=== PATIENT | female | born 1970 | race Caucasian/White ===

== ENCOUNTER 2016-10-15 01:28 | Observation (INO) | payer OTHER ==
[~2016-10-15] VITALS: Ht 165.1 cm; Wt 98.4 kg
[~2016-10-15 01:28] MED LIST: CIPRO250 MG PO
[2016-10-15 03:02] LABS: HEMOGLOBIN 14.7 gm/dl (12.3-15.3); RED BLOOD COUNT 4.69 M/UL (4.00-5.10); WHITE BLOOD COUNT 6.2 K/UL (4.5-11.0)
[2016-10-15 03:19] LABS: BUN/CREATININE RATIO 18 (0-10)
[2016-10-15] MEDS ORDERED: LOSARTAN POTASS25 MG PO (09:41)
[2016-10-15] MEDS ORDERED: LEVOTHYROXINE125 MCG PO (09:42)
[2016-10-15] MEDS ORDERED: GLIMEPIRIDE4 MG PO (09:43)
[2016-10-15] MEDS ORDERED: CRESTOR5 MG PO (09:43)
[2016-10-15] MEDS ORDERED: METFORMIN HCL1000 M1 PO (09:44)
[2016-10-15] MEDS ORDERED: ZOFRAN4 MG PO (09:45)
[2016-10-15] MEDS ORDERED: MACROBID 100 M100 MG PO (09:46)
[2016-10-16 06:24] LABS: HEMOGLOBIN 12.5 gm/dl (12.3-15.3); RED BLOOD COUNT 4.05 M/UL (4.00-5.10); WHITE BLOOD COUNT 4.1 K/UL (4.5-11.0)
[2016-10-16 06:34] LABS: BUN/CREATININE RATIO 20 (0-10)
[2016-10-16] MEDS ORDERED: DIFLUCAN200 MG PO (13:53)
[2016-10-16] MEDS ORDERED: PHENERGAN 12.12.5 M1 PO (13:54)
[2016-10-16] MEDS ORDERED: CIPROFLOXACIN500 M1 PO (13:55)
== END 2016-10-16 14:50 | disposition home or self-care (01) ==
LOC: ER1 01:28 → ZEROF 05:45 → M/S 05:45
PROVIDERS: Family Medicine; ADMIT Internal Medicine
DX: B37.49 Other urogenital candidiasis (principal); E83.52 Hypercalcemia; E03.9 Hypothyroidism, unspecified; E11.9 Type 2 diabetes mellitus without complications; I10 Essential (primary) hypertension; Z85.820 Personal history of malignant melanoma of skin; Z83.3 Family history of diabetes mellitus; Z82.5 Family history of asthma and other chronic lower respiratory diseases; Z88.0 Allergy status to penicillin; Z79.2 Long term (current) use of antibiotics; Z79.899 Other long term (current) drug therapy; Z98.51 Tubal ligation status
CPT/HCPCS: 36415; 80048; 80053; 81001; 82962; 83690; 84703; 85025; 85027; 87040; 87086; 96361; 96374; 96375; 96376; 99284; G0378; J0696; J1644; J1885; J1956; J2270; J2405; J7050; Q9962